=== PATIENT | male | born 1985 | race Caucasian/White ===

== ENCOUNTER 2016-05-28 08:47 | Day surgery (SDC) | payer OTHER ==
[~2016-05-28] VITALS: Ht 188 cm; Wt 119.1 kg
[~2016-05-28 08:47] MED LIST: GABA-531 PO; SERT100T12 PO
[2016-05-28] MEDS ORDERED: SODIUM CHLORIDE 0.9% 1,000 ML IV ONE (09:30)
[2016-05-28] MEDS ORDERED: LIDOCAINE HCL/PF 2% 5 ML VIAL ONE (10:29)
[2016-05-28] MEDS ORDERED: LIDOCAINE HCL/PF 1% 30 ML VIAL ONE (10:29)
[2016-05-28 10:33] VITALS: BP 154/92
[2016-05-28] MEDS ORDERED: BUPIVACAINE HCL/PF 0.75% 10 ML VIAL ONE (10:34)
[2016-05-28] MEDS ORDERED: IOHEXOL 300 MG/ML 10 ML VIAL ONE (10:36)
[2016-05-28 10:44] VITALS: BP 147/96
[2016-05-28] MEDS ORDERED: LIDOCAINE HCL/PF 1% 30 ML VIAL INJ ONE (11:00)
[2016-05-28] MEDS ORDERED: BUPIVACAINE HCL/PF 0.75% 10 ML VIAL IARTIC ONE (11:00)
[2016-05-28] MEDS ORDERED: IOHEXOL 300 MG/ML 10 ML VIAL IARTIC ONE (11:00)
== END 2016-05-28 11:30 | disposition home or self-care (01) ==
LOC: SDS 08:47
PROVIDERS: ATTEND Physical Medicine & Rehabilitation Pain Medicine
DX: M43.16 Spondylolisthesis, lumbar region (principal); M54.9 Dorsalgia, unspecified; Z88.0 Allergy status to penicillin; Z72.89 Other problems related to lifestyle; Z90.49 Acquired absence of other specified parts of digestive tract
CPT/HCPCS: 64483; J1040; J3490 ×2; Q9967